=== PATIENT | female | born 1970 | race Caucasian/White ===

== ENCOUNTER 2019-02-26 14:26 | Observation (INO) ==
[~2019-02-26 14:26] MED LIST: Aminoglycoside Consult 1 EACH MC ONE
[2019-02-26 15:31] LABS: Basophils # 0.1 K/mcL (0.0-0.2); Basophils % 0.4 %; Eosinophils # 0.2 K/mcL (0.0-0.6); Hemoglobin 11.8 g/dL (11.5-15.4); Immature Granulocytes % 0.9 % (0-4); Lymphocytes # 3.1 K/mcL (0.6-4.6); Lymphocytes % 25.2 %; Mean Corpuscular HGB Conc 33.7 g/dL (31.6-35.5); Mean Corpuscular Hemoglobin 29.1 pg (28.0-33.3); Mean Corpuscular Volume 86.4 fL (83.0-100.0); Mean Platelet Volume 11.1 fL (9.4-12.4); Monocytes # 0.6 K/mcL (0.0-1.3); Neutrophils # 8.1 K/mcL (1.6-8.9); Platelet Count 318 K/mcL (140-400); Red Blood Count 4.05 M/mcL (3.82-4.97); Red Cell Distribution Width 14.4 % (11.5-14.5); Segmented Neutrophils % 66.5 %; White Blood Count 12.2 K/mcL (4.3-11.1)
[2019-02-26 15:48] LABS: BUN/Creatinine Ratio 16 (6-26); Blood Urea Nitrogen 12 mg/dL (6-20); Calcium 9.4 mg/dL (8.6-10.3); Carbon Dioxide 26 mEq/L (23-29); Chloride 104 mEq/L (98-107); Glucose 121 mg/dL (70-105); Osmolality,Calculated 287 (280-300); Potassium 3.4 mEq/L (3.5-5.1); Sodium 138 mEq/L (136-145); eGFR For African Americans > 60 (> 60); eGFR For Non-African Americans > 60 (> 60)
[2019-02-26] MEDS ORDERED: cefTRIAXone 1,000 MG in 0.9 % Sodium Chloride Mini Bag 100 ML IVPB ONE (15:55)
[2019-02-26] MEDS ORDERED: MOM Conc 10 ML UD.LIQ PO PRN (16:26)
[2019-02-26] MEDS ORDERED: Mag Hydrox/Al Hydrox/Simeth 30 ML UDC PO PRN (16:26)
[2019-02-26] MEDS ORDERED: Naloxone 0.4 MG/ML INJ IVP PRN (16:26)
[2019-02-26] MEDS ORDERED: Ondansetron ODT 4 MG TAB.RAPDIS SL PRN (16:26)
[2019-02-26] MEDS: Nicotine 14 MG PATCH.TD24 TD SCH (18:55)
[2019-02-26] MEDS ORDERED: *HR* LORazepam 2 MG/ML VIAL IVP ONE (19:55)
[2019-02-26] MEDS: Gabapentin 400 MG CAPSULE PO SCH (20:00)
[2019-02-27] MEDS: Acetaminophen 325 MG TABLET PO PRN ×2 (02:27→16:48)
[2019-02-27 06:20] LABS: Hematocrit 34.5 % (35.3-44.9); Hemoglobin 11.3 g/dL (11.5-15.4); Mean Corpuscular HGB Conc 32.8 g/dL (31.6-35.5); Mean Corpuscular Hemoglobin 29.2 pg (28.0-33.3); Mean Corpuscular Volume 89.1 fL (83.0-100.0); Mean Platelet Volume 11.1 fL (9.4-12.4); Platelet Count 303 K/mcL (140-400); Red Blood Count 3.87 M/mcL (3.82-4.97); Red Cell Distribution Width 14.3 % (11.5-14.5); White Blood Count 10.8 K/mcL (4.3-11.1)
[2019-02-27 06:43] LABS: BUN/Creatinine Ratio 18 (6-26); Blood Urea Nitrogen 13 mg/dL (6-20); Calcium 8.7 mg/dL (8.6-10.3); Carbon Dioxide 27 mEq/L (23-29); Chloride 105 mEq/L (98-107); Glucose 93 mg/dL (70-105); Magnesium 1.6 mg/dL (1.6-2.6); Osmolality,Calculated 290 (280-300); Potassium 3.8 mEq/L (3.5-5.1); Sodium 140 mEq/L (136-145); eGFR For African Americans > 60 (> 60); eGFR For Non-African Americans > 60 (> 60)
[2019-02-27] MEDS: Nicotine 14 MG PATCH.TD24 TD SCH (08:16)
[2019-02-27] MEDS: cefTRIAXone 2,000 MG in Water for inj. (sterile) 20 ML IVP SCH (08:17)
[2019-02-27] MEDS: Gabapentin 400 MG CAPSULE PO SCH (08:19)
[2019-02-27] MEDS ORDERED: Fluconazole 100 MG TABLET PO ONE (09:33)
[2019-02-27] MEDS ORDERED: *HR* LORazepam 2 MG/ML VIAL IVP ONE (20:00)
[2019-02-27] MEDS ORDERED: Gabapentin 400 MG CAPSULE PO SCH (21:00)
[2019-02-28 03:12] VITALS: BP 145/62
[2019-02-28 06:15] LABS: Hematocrit 34.7 % (35.3-44.9); Hemoglobin 11.2 g/dL (11.5-15.4); Mean Corpuscular HGB Conc 32.3 g/dL (31.6-35.5); Mean Corpuscular Hemoglobin 29.3 pg (28.0-33.3); Mean Corpuscular Volume 90.8 fL (83.0-100.0); Mean Platelet Volume 11.3 fL (9.4-12.4); Platelet Count 311 K/mcL (140-400); Red Blood Count 3.82 M/mcL (3.82-4.97); Red Cell Distribution Width 14.2 % (11.5-14.5); White Blood Count 13.5 K/mcL (4.3-11.1)
[2019-02-28 06:22] LABS: BUN/Creatinine Ratio 20 (6-26); Blood Urea Nitrogen 15 mg/dL (6-20); Carbon Dioxide 25 mEq/L (23-29); Chloride 102 mEq/L (98-107); Glucose 92 mg/dL (70-105); Osmolality,Calculated 286 (280-300); Potassium 3.9 mEq/L (3.5-5.1); Sodium 138 mEq/L (136-145); eGFR For African Americans > 60 (> 60); eGFR For Non-African Americans > 60 (> 60)
[2019-02-28] MEDS: cefTRIAXone 2,000 MG in Water for inj. (sterile) 20 ML IVP SCH (07:52)
[2019-02-28] MEDS ORDERED: CefTRIAXone 1,000 MG VIAL IM ONE (08:02)
[2019-02-28] MEDS ORDERED: Water for inj. (sterile) 10 ML ONE (08:18)
== END 2019-02-28 08:35 | disposition home or self-care (01) ==
LOC: 3ANU 14:26 → EMEROOARM 14:26 → SUATTDRO 16:28 → 3ANU 17:51
PROVIDERS: ADMIT Family Medicine; ATTEND Internal Medicine